=== PATIENT | female | born 1995 | race Two or more races ===

== ENCOUNTER 2020-08-21 15:42 | Emergency (ER) | payer MEDICAID, OTHER ==
[~2020-08-21] VITALS: Ht 165.1 cm; Wt 61.2 kg
[2020-08-21 17:53] VITALS: BP 91/55
== END 2020-08-21 18:06 | disposition home or self-care (01) ==
LOC: ER 15:42
DX: S39.012A Strain of muscle, fascia and tendon of lower back, initial encounter (principal); V43.62XA Car passenger injured in collision with other type car in traffic accident, initial encounter; Y93.89 Activity, other specified; Y92.410 Unspecified street and highway as the place of occurrence of the external cause; Y99.8 Other external cause status
CPT/HCPCS: 72100

== ENCOUNTER 2023-01-02 21:19 | Observation (INO) | payer MEDICAID | END 2023-01-03 00:52 | disposition home or self-care (01) | LOC: ER 21:22 → LDRP 22:40 | PROVIDERS: ADMIT Obstetrics & Gynecology; ATTEND Obstetrics & Gynecology | DX: O26.892 Other specified pregnancy related conditions, second trimester (principal); R10.9 Unspecified abdominal pain; O26.852 Spotting complicating pregnancy, second trimester; Z3A.21 21 weeks gestation of pregnancy | CPT/HCPCS: 59025; 76815; 81002; 94760; G0378 ==